=== PATIENT | male | born 1960 | race Caucasian/White ===

== ENCOUNTER 2023-08-27 09:35 | Emergency (ER) | payer SELFPAY ==
[~2023-08-27] VITALS: Ht 175.3 cm; Wt 137.3 kg
[2023-08-27 09:38] VITALS: TEMP 97.5
[2023-08-27 09:49] LABS: BASO # 0.1 K/mm3 (0.0-0.2); BASO % 0.5 % (0.0-2.0); EOS # 0.2 K/mm3 (0.0-0.7); EOS % 1.5 % (0.0-4.0); GRAN # 6.8 K/mm3 (1.4-6.5); GRAN % 64.7 % (42.2-75.2); HEMATOCRIT 45.4 % (42.0-52.0); HEMOGLOBIN 15.1 g/dl (13.5-18.0); LYMPH # 2.3 K/mm3 (1.2-3.4); LYMPH % 22.1 % (20.0-51.0); MEAN CELL VOLUME 96 fl (80.0-100.0); MEAN CORPUSCULAR HEMOGLOBIN 32 pg (27-31); MEAN CORPUSCULAR HGB CONC 33 g/dl (33.0-37.0); MEAN PLATELET VOLUME 10.7 fl (7.4-10.4); MONO # 1.1 K/mm3 (0.1-0.6); MONO % 10.5 % (1.7-9.3); PLATELET COUNT 277 K/mm3 (130-400); RED BLOOD COUNT 4.73 M/mm3 (4.20-5.60)
[2023-08-27 09:58] LABS: PROTHROMBIN TIME 11.1 SECONDS (9.7-12.8)
[2023-08-27 10:04] LABS: ALBUMIN 3.9 gm/dL (3.4-4.8); CALCIUM 9.7 mg/dL (8.4-10.2); CREATININE, serum 1.29 mg/dL (0.72-1.25); MAGNESIUM 1.6 mg/dL (1.6-2.6); POTASSIUM 4.3 mmol/L (3.5-4.5); TOTAL PROTEIN 7.2 gm/dL (6.2-8.1)
[2023-08-27 10:10] LABS: TROPONIN-I 0.032 ng/mL (0.00-0.033)
[2023-08-27 10:17] LABS: BILIRUBIN,TOTAL 0.7 mg/dL (0.2-1.2)
[2023-08-27 11:02] VITALS: BP 104/69; PULSE 98
== END 2023-08-27 11:03 | disposition home or self-care (01) ==
LOC: COL.ER 09:35
PROVIDERS: Emergency Medicine
DX: I49.3 Ventricular premature depolarization (principal); I48.91 Unspecified atrial fibrillation; Z79.899 Other long term (current) drug therapy; Z79.82 Long term (current) use of aspirin
CPT/HCPCS: J7030